=== PATIENT | male | born 1940 | race Caucasian/White ===

== ENCOUNTER 2018-10-27 06:05 | Day surgery (SDC) | payer MEDICARE ==
[~2018-10-27] VITALS: Ht 180.3 cm; Wt 81.0 kg
[~2018-10-27 06:05] MED LIST: AMLO10TA4 PO; LEVO75TA PO
[2018-10-27 07:09] VITALS: BP 110/67
[2018-10-27] MEDS ORDERED: SODIUM CHLORIDE 0.9% 1,000 ML IV SCH (07:11)
[2018-10-27 07:21] LABS: MEAN CORPUSCULAR HEMOGLOBIN 36.4 pg (27.5-34.5); MEAN CORPUSCULAR HGB CONC 33.4 g/dL (33.2-36.2); MEAN CORPUSCULAR VOLUME 109.2 fL (81-97); MEAN PLATELET VOLUME 8.3 fL (7.4-10.4); PLATELET COUNT 206 x10^3/uL (130-400); RED BLOOD COUNT 2.44 x10^6/uL (4.38-5.82)
[2018-10-27 07:22] LABS: MD YES
[2018-10-27 07:38] LABS: BAND#(MANUAL) 0.22 x10^3/uL; BANDS%(MANUAL) 4 % (0-7); EOS#(MANUAL) 0.28 x10^3/uL (0.0-0.4); EOS% (MANUAL) 5 % (1-7); LYMPH#(MANUAL) 1.18 x10^3/uL (1-3.4); LYMPHS% (MANUAL) 21 % (22-44); MONOS#(MANUAL) 1.18 x10^3/uL (0.3-2.7); MONOS% (MANUAL) 21 % (2-9); SEG#(MANUAL) 2.74 x10^3/uL (1.8-6.8); SEGS% (MANUAL) 49 % (42-75)
[2018-10-27 07:40] LABS: <PLATELET ESTIMATE> ADEQUATE; <PLT MORPHOLOGY> NORMAL PLT MORPH; ANISOCYTOSIS 2+
[2018-10-27] MEDS ORDERED: LIDOCAINE-MPF 1%, 5ML ONE (07:49)
[2018-10-27] MEDS ORDERED: MIDAZOLAM 1 MG/ML, 5ML ONE ×2 (07:59)
[2018-10-27] MEDS ORDERED: FLUMAZENIL 0.1 MG/1 ML, 5ML ONE (07:59)
[2018-10-27] MEDS ORDERED: FENTANYL PF 100 MCG/2ML ONE (07:59)
[2018-10-27] MEDS ORDERED: NALOXONE 1 MG/ML, 2ML ONE (07:59)
[2018-10-27] MEDS ORDERED: BUPIVACAINE/PF 0.5% ONE (08:20)
== END 2018-10-27 10:40 | disposition home or self-care (01) ==
LOC: OUT 06:05
PROVIDERS: ATTEND Specialist
DX: D53.9 Nutritional anemia, unspecified (principal); I10 Essential (primary) hypertension; E03.9 Hypothyroidism, unspecified; Z98.890 Other specified postprocedural states; Z98.52 Vasectomy status; Z72.89 Other problems related to lifestyle
CPT/HCPCS: 36415; 38222; 77012; 85025; 85060; 85097; 88237; 88264; 88280; 88305; 88311; 88313; 88360; 99156; J2250; J3010; J3490; 99157; J2310

== ENCOUNTER → 2018-11-03 | Outpatient (CLI) | payer MEDICARE | END | disposition home or self-care (01) | LOC: LAB 16:15 | PROVIDERS: ATTEND Specialist | DX: Z02.9 Encounter for administrative examinations, unspecified (principal) ==

== ENCOUNTER 2019-03-11 06:01 | Day surgery (SDC) | payer MEDICARE ==
[~2019-03-11] VITALS: Ht 177.8 cm; Wt 86.0 kg
[2019-03-11] MEDS ORDERED: SODIUM CHLORIDE 0.9% 1,000 ML IV SCH (06:43)
[2019-03-11 06:59] VITALS: BP 135/72
[2019-03-11 07:51] LABS: MEAN CORPUSCULAR HEMOGLOBIN 32.8 pg (27.5-34.5); MEAN CORPUSCULAR HGB CONC 34.1 g/dL (33.2-36.2); MEAN CORPUSCULAR VOLUME 96.1 fL (81-97); MEAN PLATELET VOLUME 8.9 fL (7.4-10.4); PLATELET COUNT 115 x10^3/uL (130-400); RED BLOOD COUNT 2.71 x10^6/uL (4.38-5.82); RED CELL DISTRIBUTION WIDTH 15.4 % (9.4-14.8)
[2019-03-11 07:54] LABS: MD YES
[2019-03-11 07:57] LABS: BAND#(MANUAL) 0.17 x10^3/uL; BANDS%(MANUAL) 11 % (0-7); EOS#(MANUAL) 0.05 x10^3/uL (0.0-0.4); EOS% (MANUAL) 3 % (1-7); LYMPH#(MANUAL) 0.66 x10^3/uL (1-3.4); LYMPHS% (MANUAL) 44 % (22-44); MONOS#(MANUAL) 0.17 x10^3/uL (0.3-2.7); MONOS% (MANUAL) 11 % (2-9); SEG#(MANUAL) 0.47 x10^3/uL (1.8-6.8); SEGS% (MANUAL) 31 % (42-75)
[2019-03-11 07:58] LABS: ANISOCYTOSIS 1+
[2019-03-11] MEDS ORDERED: LIDOCAINE-MPF 1%, 5ML ONE (07:58)
[2019-03-11 07:59] LABS: <PLATELET ESTIMATE> DECREASED; <PLT MORPHOLOGY> NORMAL PLT MORPH
[2019-03-11] MEDS ORDERED: FENTANYL PF 100 MCG/2ML ONE (08:12)
[2019-03-11] MEDS ORDERED: NALOXONE 1 MG/ML, 2ML ONE (08:12)
[2019-03-11] MEDS ORDERED: FLUMAZENIL 0.1 MG/1 ML, 5ML ONE (08:12)
[2019-03-11] MEDS ORDERED: MIDAZOLAM 1 MG/ML, 5ML ONE (08:12)
== END 2019-03-11 10:00 | disposition home or self-care (01) ==
LOC: OUT 06:01
PROVIDERS: ATTEND Specialist
DX: D46.22 Refractory anemia with excess of blasts 2 (principal); I10 Essential (primary) hypertension; D72.821 Monocytosis (symptomatic); E03.9 Hypothyroidism, unspecified; Z98.52 Vasectomy status; Z98.890 Other specified postprocedural states
CPT/HCPCS: 36415; 38222; 77012; 85025; 85060; 85097; 88237; 88264; 88280; 88305; 88311; 88313; 99156; J2250; J3010; 99157; J2310

== ENCOUNTER 2019-04-06 13:24 | Emergency (ER) | payer MEDICARE ==
[~2019-04-06] VITALS: Ht 177.8 cm; Wt 82.0 kg
[2019-04-06 19:45] VITALS: BP 119/60
== END 2019-04-06 20:25 | disposition home or self-care (01) ==
LOC: ED 17:18
DX: D61.810 Antineoplastic chemotherapy induced pancytopenia (principal); D64.9 Anemia, unspecified; I10 Essential (primary) hypertension; Z86.39 Personal history of other endocrine, nutritional and metabolic disease
CPT/HCPCS: 36415; 36430; 86850; 86900; 86923; 99291; P9040; 36591; 85025; 96365; P9037; Q0163

== ENCOUNTER 2019-08-03 17:57 | Inpatient (IN) | payer MEDICARE ==
[~2019-08-03] VITALS: Ht 177.8 cm; Wt 82.2 kg
[2019-08-03] VITALS (7 sets, daily range): BP systolic 116–163; BP diastolic 63–91
--- NOTE | 2019-08-03 18:28 | NUR ---
PATIENT RESTINGN IN THE ROOM. HE DENIES AND PAIN OR COMPLAINTS AT THIS TIME. HE STATES THAT HE HAS RECEIVED 38 PINTS OF BLOOD SINCE SEPTEMBER.
[2019-08-03] MEDS ORDERED: SODIUM CHLORIDE FLUSH 10ML SYR IVF ONE (18:30)
[2019-08-03 19:01] LABS: MEAN CORPUSCULAR HEMOGLOBIN 35.4 pg (27.5-34.5); MEAN CORPUSCULAR HGB CONC 33.6 g/dL (33.2-36.2); MEAN CORPUSCULAR VOLUME 105.4 fL (81-97); MEAN PLATELET VOLUME 8.8 fL (7.4-10.4); RED BLOOD COUNT 1.92 x10^6/uL (4.38-5.82); RED CELL DISTRIBUTION WIDTH 27.5 % (9.4-14.8)
[2019-08-03 19:02] LABS: MD YES
[2019-08-03 19:04] LABS: PLATELET COUNT 5 x10^3/uL (130-400)
--- NOTE | 2019-08-03 19:07 | NUR ---
Pt report from Philip Ramirez. This rn to assume care of pt. Awaiting blood products from bb.
[2019-08-03 19:21] LABS: ALANINE AMINOTRANSFERASE 39 U/L (12-78); ALBUMIN 3.9 g/dL (3.4-5.0); ANION GAP 5 mmol/L (5-15); CALCIUM 8.7 mg/dL (8.5-10.1); CHLORIDE 110 mmol/L (98-107); CREATININE 0.89 mg/dL (0.7-1.3)
[2019-08-03 19:26] LABS: ALKALINE PHOSPHATASE 70 U/L (45-117); BILIRUBIN,TOTAL 0.9 mg/dL (0.2-1.0); TOTAL PROTEIN 6.6 g/dL (6.4-8.2)
[2019-08-03] MEDS ORDERED: POLYETHYLENE GLYCOL 17 GM PACKET PO PRN (19:30)
[2019-08-03] MEDS ORDERED: ONDANSETRON ODT 4 MG PO PRN (19:30)
[2019-08-03] MEDS ORDERED: BISACODYL 10 MG SUPP PR PRN (19:30)
--- NOTE | 2019-08-03 20:27 | NUR ---
LATE ENTRY: Floor rn aware of platelets ready in bb and need for 2nd packed RBC.
[2019-08-03 21:41] LABS: EOS#(MANUAL) 0.05 x10^3/uL (0.0-0.4); EOS% (MANUAL) 5 % (1-7); LYMPH#(MANUAL) 0.75 x10^3/uL (1-3.4); LYMPHS% (MANUAL) 83 % (22-44); MONOS#(MANUAL) 0.02 x10^3/uL (0.3-2.7); MONOS% (MANUAL) 2 % (2-9); SEG#(MANUAL) 0.09 x10^3/uL (1.8-6.8); SEGS% (MANUAL) 10 % (42-75)
[2019-08-03 21:43] LABS: OVALOCYTES 1+
[2019-08-03 21:46] LABS: <PLATELET ESTIMATE> DECREASED; <PLT MORPHOLOGY> QNS FOR PLT MORPH
[2019-08-03] MEDS: TBO-FILGRASTIM 480 MCG/0.8 ML SQ SCH (23:43)
[2019-08-03] MEDS: SODIUM CHLORIDE FLUSH 10ML SYR IVF SCH (23:44)
[2019-08-04] VITALS (7 sets, daily range): BP systolic 94–123; BP diastolic 54–67
[2019-08-04 05:19] LABS: ALANINE AMINOTRANSFERASE 32 U/L (12-78); ALBUMIN 3.3 g/dL (3.4-5.0); ANION GAP 2 mmol/L (5-15); CALCIUM 8.3 mg/dL (8.5-10.1); CHLORIDE 111 mmol/L (98-107); CREATININE 0.77 mg/dL (0.7-1.3)
[2019-08-04 05:21] LABS: ALKALINE PHOSPHATASE 65 U/L (45-117); BILIRUBIN,TOTAL 2.8 mg/dL (0.2-1.0); TOTAL PROTEIN 5.7 g/dL (6.4-8.2)
[2019-08-04 05:24] LABS: MEAN CORPUSCULAR HEMOGLOBIN 34.8 pg (27.5-34.5); MEAN CORPUSCULAR HGB CONC 34.3 g/dL (33.2-36.2); MEAN CORPUSCULAR VOLUME 101.2 fL (81-97); RED CELL DISTRIBUTION WIDTH 15.7 % (9.4-14.8)
[2019-08-04 05:45] LABS: MD YES
[2019-08-04 05:46] LABS: MEAN PLATELET VOLUME 8.1 fL (7.4-10.4)
[2019-08-04 05:49] LABS: PLATELET COUNT 23 x10^3/uL (130-400)
[2019-08-04 05:51] LABS: <PLATELET ESTIMATE> DECREASED; <PLT MORPHOLOGY> NORMAL PLT MORPH; ANISOCYTOSIS 1+; EOS#(MANUAL) 0.03 x10^3/uL (0.0-0.4); EOS% (MANUAL) 4 % (1-7); LYMPH#(MANUAL) 0.53 x10^3/uL (1-3.4); LYMPHS% (MANUAL) 76 % (22-44); MONOS#(MANUAL) 0.03 x10^3/uL (0.3-2.7); MONOS% (MANUAL) 4 % (2-9); SEG#(MANUAL) 0.11 x10^3/uL (1.8-6.8); SEGS% (MANUAL) 16 % (42-75)
[2019-08-04] MEDS: SENNA/DOCUSATE TABLET PO SCH (09:00)
[2019-08-04] MEDS: SODIUM CHLORIDE FLUSH 10ML SYR IVF SCH ×2 (09:44→19:52)
[2019-08-04 10:06] LABS: INTERNATIONAL NORMALIZED RATIO 1.15 (0.93-1.1)
[2019-08-04] MEDS: ACETAMINOPHEN 325 MG TABLET PO PRN (17:49)
[2019-08-05] VITALS (12 sets, daily range): BP systolic 101–147; BP diastolic 63–88
[2019-08-05] MEDS: LEVOTHYROXINE 75 MCG TABLET PO SCH (05:09)
[2019-08-05] MEDS: TBO-FILGRASTIM 480 MCG/0.8 ML SQ SCH (05:10)
[2019-08-05 08:19] LABS: MEAN CORPUSCULAR HEMOGLOBIN 34.4 pg (27.5-34.5); MEAN CORPUSCULAR HGB CONC 34.1 g/dL (33.2-36.2); MEAN CORPUSCULAR VOLUME 101.1 fL (81-97); RED BLOOD COUNT 2.18 x10^6/uL (4.38-5.82); RED CELL DISTRIBUTION WIDTH 24.7 % (9.4-14.8)
[2019-08-05 08:20] LABS: ANION GAP 4 mmol/L (5-15); CALCIUM 8.5 mg/dL (8.5-10.1); CHLORIDE 108 mmol/L (98-107); CREATININE 0.74 mg/dL (0.7-1.3)
[2019-08-05 08:27] LABS: MEAN PLATELET VOLUME 8.9 fL (7.4-10.4)
[2019-08-05 08:31] LABS: MD YES
[2019-08-05 08:33] LABS: PLATELET COUNT 14 x10^3/uL (130-400)
[2019-08-05 08:37] LABS: ANISOCYTOSIS 2+; BAND#(MANUAL) 0.04 x10^3/uL; BANDS%(MANUAL) 6 % (0-7); EOS#(MANUAL) 0.04 x10^3/uL (0.0-0.4); EOS% (MANUAL) 6 % (1-7); LYMPH#(MANUAL) 0.43 x10^3/uL (1-3.4); LYMPHS% (MANUAL) 62 % (22-44); MONOS#(MANUAL) 0.03 x10^3/uL (0.3-2.7); MONOS% (MANUAL) 4 % (2-9); SEG#(MANUAL) 0.15 x10^3/uL (1.8-6.8); SEGS% (MANUAL) 22 % (42-75)
[2019-08-05 08:38] LABS: <PLATELET ESTIMATE> DECREASED; <PLT MORPHOLOGY> NORMAL PLT MORPH
[2019-08-05] MEDS: SODIUM CHLORIDE FLUSH 10ML SYR IVF SCH ×2 (09:13→19:23)
[2019-08-05] MEDS: DIPHENHYDRAMINE 25 MG CAPSULE PO PRN (09:14)
[2019-08-05] MEDS: ACETAMINOPHEN 325 MG TABLET PO PRN ×2 (09:15→19:21)
[2019-08-05] MEDS: AMLODIPINE 10 MG TAB PO SCH ×2 (09:15→09:16)
[2019-08-05] MEDS: SENNA/DOCUSATE TABLET PO SCH (09:15)
[2019-08-06] MEDS ORDERED: VANCOMYCIN PER PHARMACY MC PRN
[2019-08-06] MEDS: PIPERACILLIN/TAZO/PMX 3.375GM 50 ML IV SCH ×4 (00:04→18:23)
[2019-08-06 00:08] VITALS: BP 133/70
[2019-08-06] MEDS ORDERED: PHARMACOKINETIC MONITORING MC PRN (00:30)
[2019-08-06 00:48] LABS: MICROSCOPIC NOT IND
[2019-08-06 00:53] LABS: CULTURE INDICATED? NO
[2019-08-06] MEDS: VANCOMYCIN 1,400 MG in SODIUM CHLORIDE 0.9% 250 ML IV SCH (01:08)
[2019-08-06] MEDS: TBO-FILGRASTIM 480 MCG/0.8 ML SQ SCH (05:29)
[2019-08-06] MEDS: LEVOTHYROXINE 75 MCG TABLET PO SCH (05:29)
[2019-08-06 07:25] VITALS: BP 121/70
[2019-08-06] MEDS: AMLODIPINE 10 MG TAB PO SCH (09:00)
[2019-08-06] MEDS: SENNA/DOCUSATE TABLET PO SCH (09:00)
[2019-08-06 09:10] LABS: ALANINE AMINOTRANSFERASE 30 U/L (12-78); ALBUMIN 3.4 g/dL (3.4-5.0); ANION GAP 5 mmol/L (5-15); CALCIUM 8.2 mg/dL (8.5-10.1); CHLORIDE 106 mmol/L (98-107); CREATININE 1.04 mg/dL (0.7-1.3)
[2019-08-06 09:13] LABS: ALKALINE PHOSPHATASE 63 U/L (45-117); BILIRUBIN,TOTAL 1.8 mg/dL (0.2-1.0); TOTAL PROTEIN 6.3 g/dL (6.4-8.2)
[2019-08-06 09:29] LABS: MEAN CORPUSCULAR HEMOGLOBIN 33.5 pg (27.5-34.5); MEAN CORPUSCULAR HGB CONC 33.5 g/dL (33.2-36.2); MEAN CORPUSCULAR VOLUME 99.8 fL (81-97); MEAN PLATELET VOLUME 8.1 fL (7.4-10.4); PLATELET COUNT 28 x10^3/uL (130-400); RED BLOOD COUNT 2.51 x10^6/uL (4.38-5.82); RED CELL DISTRIBUTION WIDTH 16.4 % (9.4-14.8)
[2019-08-06 09:30] LABS: MD YES
[2019-08-06 09:34] LABS: <PLATELET ESTIMATE> DECREASED; <PLT MORPHOLOGY> NORMAL PLT MORPH; ANISOCYTOSIS 2+; BAND#(MANUAL) 0.02 x10^3/uL; BANDS%(MANUAL) 2 % (0-7); EOS#(MANUAL) 0.03 x10^3/uL (0.0-0.4); EOS% (MANUAL) 4 % (1-7); LYMPH#(MANUAL) 0.46 x10^3/uL (1-3.4); LYMPHS% (MANUAL) 58 % (22-44); METAMYELOCYTES# (MANUAL) 0.03 x10^3/uL (0-0); METAMYELOCYTES% (MANUAL) 4 % (0-1); MONOS#(MANUAL) 0.05 x10^3/uL (0.3-2.7); MONOS% (MANUAL) 6 % (2-9); NRBC % (MANUAL) 2 % (0-1); SEG#(MANUAL) 0.21 x10^3/uL (1.8-6.8); SEGS% (MANUAL) 26 % (42-75)
[2019-08-06] MEDS: SODIUM CHLORIDE FLUSH 10ML SYR IVF SCH ×2 (09:49→20:14)
--- NOTE | 2019-08-06 11:01 | NUR ---
PUREE/ THINS -No straws -Float meds -Up at 90 degrees Addendum: 08/06/19 at [address] Amended: Links added.
[2019-08-06 13:18] VITALS: BP 113/58
[2019-08-06 18:40] VITALS: BP 128/78
[2019-08-07] MEDS: PIPERACILLIN/TAZO/PMX 3.375GM 50 ML IV SCH ×4 (00:19→19:22)
[2019-08-07 00:33] VITALS: BP 103/63
[2019-08-07] MEDS: VANCOMYCIN 1,400 MG in SODIUM CHLORIDE 0.9% 250 ML IV SCH (01:21)
[2019-08-07 04:45] LABS: ANION GAP 2 mmol/L (5-15); CALCIUM 8.2 mg/dL (8.5-10.1); CHLORIDE 108 mmol/L (98-107)
[2019-08-07 04:49] LABS: ALANINE AMINOTRANSFERASE 28 U/L (12-78); ALKALINE PHOSPHATASE 55 U/L (45-117); BILIRUBIN,TOTAL 1.6 mg/dL (0.2-1.0); CREATININE 0.88 mg/dL (0.7-1.3); TOTAL PROTEIN 5.8 g/dL (6.4-8.2)
[2019-08-07 04:52] LABS: MEAN CORPUSCULAR HEMOGLOBIN 33.6 pg (27.5-34.5); MEAN CORPUSCULAR HGB CONC 33.6 g/dL (33.2-36.2); RED BLOOD COUNT 2.24 x10^6/uL (4.38-5.82); RED CELL DISTRIBUTION WIDTH 16.6 % (9.4-14.8)
[2019-08-07 05:51] LABS: MD YES; MEAN PLATELET VOLUME 8.6 fL (7.4-10.4)
[2019-08-07 05:53] LABS: PLATELET COUNT 18 x10^3/uL (130-400)
[2019-08-07 05:55] LABS: <PLATELET ESTIMATE> DECREASED; <PLT MORPHOLOGY> NORMAL PLT MORPH; ANISOCYTOSIS 2+; BAND#(MANUAL) 0.07 x10^3/uL; BANDS%(MANUAL) 6 % (0-7); EOS#(MANUAL) 0.04 x10^3/uL (0.0-0.4); EOS% (MANUAL) 4 % (1-7); LYMPH#(MANUAL) 0.62 x10^3/uL (1-3.4); LYMPHS% (MANUAL) 56 % (22-44); MONOS#(MANUAL) 0.09 x10^3/uL (0.3-2.7); MONOS% (MANUAL) 8 % (2-9); SEG#(MANUAL) 0.29 x10^3/uL (1.8-6.8); SEGS% (MANUAL) 26 % (42-75)
[2019-08-07 05:56] LABS: POLYCHROMASIA 1+
[2019-08-07 05:57] LABS: OVALOCYTES 1+
[2019-08-07] MEDS: TBO-FILGRASTIM 480 MCG/0.8 ML SQ SCH (05:59)
[2019-08-07] MEDS: LEVOTHYROXINE 75 MCG TABLET PO SCH (06:00)
[2019-08-07 07:54] VITALS: BP 117/66
[2019-08-07] MEDS: SENNA/DOCUSATE TABLET PO SCH (08:55)
[2019-08-07] MEDS: AMLODIPINE 10 MG TAB PO SCH (08:55)
[2019-08-07] MEDS: SODIUM CHLORIDE FLUSH 10ML SYR IVF SCH ×2 (08:56→21:34)
[2019-08-07 14:52] VITALS: BP 112/65
[2019-08-07 18:56] VITALS: BP 115/66
[2019-08-08 00:59] VITALS: BP 114/67
[2019-08-08] MEDS: PIPERACILLIN/TAZO/PMX 3.375GM 50 ML IV SCH ×2 (01:06→06:32)
[2019-08-08] MEDS: VANCOMYCIN 1,400 MG in SODIUM CHLORIDE 0.9% 250 ML IV SCH (01:41)
[2019-08-08] MEDS: LEVOTHYROXINE 75 MCG TABLET PO SCH (06:14)
[2019-08-08] MEDS: TBO-FILGRASTIM 480 MCG/0.8 ML SQ SCH (06:16)
[2019-08-08 07:59] LABS: ALANINE AMINOTRANSFERASE 27 U/L (12-78); ANION GAP 4 mmol/L (5-15); CALCIUM 8.3 mg/dL (8.5-10.1); CHLORIDE 108 mmol/L (98-107)
[2019-08-08 08:02] LABS: ALKALINE PHOSPHATASE 54 U/L (45-117); BILIRUBIN,TOTAL 1.2 mg/dL (0.2-1.0); CREATININE 0.84 mg/dL (0.7-1.3); TOTAL PROTEIN 5.9 g/dL (6.4-8.2)
[2019-08-08 08:14] VITALS: BP 109/64
[2019-08-08 08:32] LABS: MEAN CORPUSCULAR HEMOGLOBIN 33.6 pg (27.5-34.5); MEAN CORPUSCULAR VOLUME 101.7 fL (81-97); MEAN PLATELET VOLUME 8.9 fL (7.4-10.4); RED BLOOD COUNT 2.25 x10^6/uL (4.38-5.82)
[2019-08-08 08:33] LABS: PLATELET COUNT 11 x10^3/uL (130-400)
[2019-08-08 08:47] LABS: MD YES
[2019-08-08 08:53] LABS: BAND#(MANUAL) 0.14 x10^3/uL; BANDS%(MANUAL) 10 % (0-7); EOS#(MANUAL) 0.08 x10^3/uL (0.0-0.4); EOS% (MANUAL) 6 % (1-7); LYMPH#(MANUAL) 0.43 x10^3/uL (1-3.4); LYMPHS% (MANUAL) 31 % (22-44); MONOS#(MANUAL) 0.07 x10^3/uL (0.3-2.7); MONOS% (MANUAL) 5 % (2-9); NRBC % (MANUAL) 1 % (0-1); SEG#(MANUAL) 0.67 x10^3/uL (1.8-6.8); SEGS% (MANUAL) 48 % (42-75)
[2019-08-08 08:56] LABS: ANISOCYTOSIS 2+
[2019-08-08 08:57] LABS: <PLATELET ESTIMATE> DECREASED; <PLT MORPHOLOGY> NORMAL PLT MORPH; OVALOCYTES 1+; POLYCHROMASIA 1+
[2019-08-08] MEDS: SENNA/DOCUSATE TABLET PO SCH (09:00)
[2019-08-08] MEDS: SODIUM CHLORIDE FLUSH 10ML SYR IVF SCH (09:00)
[2019-08-08] MEDS: AMLODIPINE 10 MG TAB PO SCH ×2 (09:00→10:02)
[2019-08-08] MEDS ORDERED: CIPROFLOXACIN 500 MG TABLET PO SCH (09:30)
[2019-08-08] MEDS: DIPHENHYDRAMINE 25 MG CAPSULE PO PRN (10:39)
[2019-08-08] MEDS: ACETAMINOPHEN 325 MG TABLET PO PRN (10:39)
[2019-08-08 12:30] VITALS: BP 122/74
[2019-08-08 12:45] VITALS: BP 112/67
[2019-08-08] MEDS: CIPROFLOXACIN 500 MG TABLET PO SCH ×2 (12:49→18:32)
[2019-08-08 13:25] VITALS: BP 127/75
[2019-08-08 14:28] VITALS: BP 110/66
[2019-08-08] MEDS ORDERED: CIPR500T3 PO (15:19)
[2019-08-08 17:38] LABS: MEAN CORPUSCULAR HEMOGLOBIN 34.1 pg (27.5-34.5); MEAN CORPUSCULAR VOLUME 103.1 fL (81-97); MEAN PLATELET VOLUME 7.3 fL (7.4-10.4); RED BLOOD COUNT 2.21 x10^6/uL (4.38-5.82); RED CELL DISTRIBUTION WIDTH 24.4 % (9.4-14.8)
[2019-08-08 17:41] LABS: PLATELET COUNT 39 x10^3/uL (130-400)
[2019-08-08 18:20] LABS: MD YES
[2019-08-08 18:51] LABS: BAND#(MANUAL) 0.16 x10^3/uL; BANDS%(MANUAL) 9 % (0-7); EOS#(MANUAL) 0.04 x10^3/uL (0.0-0.4); EOS% (MANUAL) 2 % (1-7); LYMPH#(MANUAL) 0.77 x10^3/uL (1-3.4); LYMPHS% (MANUAL) 43 % (22-44); MONOS#(MANUAL) 0.16 x10^3/uL (0.3-2.7); MONOS% (MANUAL) 9 % (2-9); NRBC % (MANUAL) 1 % (0-1); SEG#(MANUAL) 0.67 x10^3/uL (1.8-6.8); SEGS% (MANUAL) 37 % (42-75)
[2019-08-08 18:53] LABS: ANISOCYTOSIS 2+
[2019-08-08 18:54] LABS: <PLATELET ESTIMATE> DECREASED; <PLT MORPHOLOGY> NORMAL PLT MORPH; OVALOCYTES 1+; POLYCHROMASIA 1+; SPHEROCYTES 1+
== END 2019-08-08 19:24 | disposition home or self-care (01) | DRG 811 ==
LOC: ED 19:16 → EDIP 19:20 → 4NW 20:46
PROVIDERS: ADMIT Internal Medicine; ATTEND Internal Medicine
PROC: 30233R1 Transfusion of Nonautologous Platelets into Peripheral Vein, Percutaneous Approach (ICD-10-PCS; principal; 2019-08-03)
PROC: 30233N1 Transfusion of Nonautologous Red Blood Cells into Peripheral Vein, Percutaneous Approach (ICD-10-PCS; 2019-08-03)
DX: D46.9 Myelodysplastic syndrome, unspecified (principal); D61.810 Antineoplastic chemotherapy induced pancytopenia; C61 Malignant neoplasm of prostate; D75.89 Other specified diseases of blood and blood-forming organs; E03.9 Hypothyroidism, unspecified; G47.30 Sleep apnea, unspecified; I10 Essential (primary) hypertension; R50.81 Fever presenting with conditions classified elsewhere; T45.1X5A Adverse effect of antineoplastic and immunosuppressive drugs, initial encounter; Z82.49 Family history of ischemic heart disease and other diseases of the circulatory system; Z85.819 Personal history of malignant neoplasm of unspecified site of lip, oral cavity, and pharynx; Z85.89 Personal history of malignant neoplasm of other organs and systems; Z92.3 Personal history of irradiation
CPT/HCPCS: 36415; 36430; 71045; 80048; 80053; 81003; 82607; 82728; 85025; 85610; 85730; 86850; 86900; 86923; 87040; G0378; J2543; J3370; J1447; J7050; P9037; P9040; Q0163